=== PATIENT | female | born 1995 ===

== ENCOUNTER 2017-06-01 14:12 | Emergency (ER) | payer SELFPAY ==
[2017-06-01 14:19] VITALS: BP 135/62; PULSE 100; RESP 18; TEMP 99.4; O2SAT 100
--- NOTE | 2017-06-01 16:08 | ED PDOC ---
HPI: CCC, URI, Sore Throat Time Seen by Provider: 06/01/17 14:48 Chief Complaint (Nursing): ENT Problem Chief Complaint (Provider): Fever and sore throat History Per: Patient History/Exam Limitations: no limitations Onset/Duration Of Symptoms: Days (x 2) Current Symptoms Are (Timing): Still Present Additional Complaint(s): Breanne is a 21 y/o female who presents to the ED complaining of fever, sore throat, and generalized myalgias, since yesterday. States taking Advil with minimal relief. PMD: Unknown Past Medical History Reviewed: Historical Data, Nursing Documentation, Vital Signs Vital Signs: Last Vital Signs Temp 99.4 F 06/01/17 14:16 Pulse 100 H 06/01/17 14:16 Resp 18 06/01/17 14:16 BP 135/62 06/01/17 14:16 Pulse Ox 100 06/01/17 16:14 - Medical History PMH: Denies: Chronic Kidney Disease - Family History Family History: States: Unknown Family Hx - Home Medications Home Medications: Ambulatory Orders Medication Instructions Recorded Ketorolac Tromethamine [Toradol] 10 mg PO Q6 #30 tab 03/28/16 Metoclopramide [Reglan] 10 mg PO Q6 PRN #12 tab 06/30/16 Acetaminophen with Codeine 1 tab PO Q4H PRN #22 tab 10/21/16 [Tylenol with Codeine No. 3 300 mg-30 mg] Naproxen [Naprosyn] 1 tab PO BID PRN #60 tab 10/21/16 Amoxicillin [Amoxil 500 mg Cap] 500 mg PO BID #20 cap 06/01/17 - Allergies Allergies/Adverse Reactions: Allergies Allergy/AdvReac Type Severity Reaction Status Date / Time No Known Allergies Allergy Verified 06/29/16 22:56 Review of Systems ROS Statement: Except As Marked, All Systems Reviewed And Found Negative Constitutional: Positive for: Fever, Other (Myalgias) ENT: Positive for: Throat Pain Physical Exam - Reviewed Nursing Documentation Reviewed: Yes Vital Signs Reviewed: Yes - Physical Exam Appears: Positive for: Non-toxic, No Acute Distress Head Exam: Positive for: ATRAUMATIC, NORMAL INSPECTION, NORMOCEPHALIC Skin: Positive for: Normal Color, Warm, Dry. Negative for: Rash Eye Exam: Positive for: EOMI, Normal appearance, PERRL ENT: Positive for: Tonsillar Exudate, Tonsillar Swelling. Negative for: Normal ENT Inspection Neck: Positive for: Normal, Painless ROM Neurologic/Psych: Positive for: Alert, Oriented - ECG O2 Sat by Pulse Oximetry: 100 (RA) Pulse Ox Interpretation: Normal Medical Decision Making Medical Decision Making: Clinical Impression: Strep pharyngitis --Patient given Decadron 4 mg IM Time: 16:08 Upon provider evaluation patient is medically stable, and requires no further treatment in the ED at this time. Patient will be discharged home with Rx for Amoxicillin. Counseling was provided and all questions were answered regarding diagnosis and need for follow up with PMD. There is agreement to discharge plan. Return if symptoms persist or worsen. Scribe Attestation: Documented by Theresa Tadeo, acting as a scribe for Sierra Delgado PA-C Provider Scribe Attestation: All medical record entries made by the Scribe were at my direction and personally dictated by me. I have reviewed the chart and agree that the record accurately reflects my personal performance of the history, physical exam, medical decision making, and the department course for this patient. I have also personally directed, reviewed, and agree with the discharge instructions and disposition. Disposition - Clinical Impression Clinical Impression: Strep pharyngitis - Patient ED Disposition Is Patient to be Admitted: No Counseled Patient/Family Regarding: Diagnosis, Need For Followup, Rx Given - Disposition Disposition: Routine/Home Disposition Time: 16:08 Condition: STABLE Prescriptions: Amoxicillin [Amoxil 500 mg Cap] 500 mg PO BID #20 cap Forms: [employer] (K[place]akh)
[2017-06-01] MEDS ORDERED: Dexamethasone 4 mg/1 ml IM STA (16:10)
[2017-06-01] MEDS ORDERED: Dexamethasone 4 mg/1 ml ONE (16:42)
== END 2017-06-01 16:08 | disposition home or self-care (01) ==
LOC: H.ER 14:12
DX: J02.9 Acute pharyngitis, unspecified (principal); R50.9 Fever, unspecified
CPT/HCPCS: 96372; 99282; J1100